=== PATIENT | male | born 1985 | race Two or more races ===

== ENCOUNTER → 2022-05-23 | Outpatient (CLI) | payer OTHER ==
[~2022-05-23] MED LIST: CYCL-707 PO; IBUP80TA PO
[2022-05-23 16:42] LABS: PLATELET COUNT, AUTOMATED 275 10^3/uL (150-450)
[2022-05-23 16:54] LABS: INR 0.92; PROTHROMBIN TIME 12.7 SECONDS (12.7-14.5)
[2022-05-23 16:55] LABS: PARTIAL THROMBOPLASTIN TIME 28.3 SECONDS (25.9-37.0)
== END ==
LOC: M LAB 15:26
PROVIDERS: ATTEND Physician Assistant
DX: M51.26 Other intervertebral disc displacement, lumbar region (principal)

== ENCOUNTER → 2023-03-11 | Outpatient (CLI) | payer OTHER | LOC: M PLAIMG 07:00 | PROVIDERS: ATTEND Physician Assistant Medical | DX: G43.909 Migraine, unspecified, not intractable, without status migrainosus (principal) ==